=== PATIENT | female | born 1990 | race Caucasian/White ===

== ENCOUNTER 2018-10-08 07:24 | Day surgery (SDC) | payer BC ==
[2018-10-07 16:31] LABS: CHLORIDE,CL 105 mmol/L (98-107); SODIUM,NA 141 mmol/L (136-145)
[~2018-10-08 07:24] MED LIST: Lactated Ringers 1,000 ML IV SCH; Sodium Chloride 0.9% 10 ML SDV IV PRN; Sodium Chloride 0.9% 10 ML Syringe FLUSH PRN; Sodium Chloride 0.9% 2.5 ML Syringe FLUSH PRN
--- NOTE | 2018-10-08 08:28 | PCM.PREANE ---
Preanesthetic Assessment - Anesthesia/Transfusion/Family Hx Anesthesia History: Prior Anesthesia Without Reaction Other Type of Anesthesia Reaction Comment: "grandfather had hard time coming out of anesthesia" Family History of Anesthesia Reaction: No Transfusion History: No Prior Transfusion(s) - Review of Systems General: No Symptoms Pulmonary: No Symptoms Cardiovascular: No Symptoms Gastrointestinal: No Symptoms Neurological: No Symptoms Other: Reports: None - Physical Assessment NPO Status Date: 10/07/18 NPO Status Time: 20:30 O2 Sat by Pulse Oximetry: 100 Respiratory Rate: 15 Vital Signs: Last Vital Signs Temp 98.6 F 10/08/18 08:00 Pulse 66 10/08/18 08:00 Resp 15 10/08/18 08:00 BP 123/68 10/08/18 08:00 Pulse Ox 100 10/08/18 08:00 Height: 5 ft 8 in Weight: 88.451 kg ASA Class: 2 Mental Status: Alert & Oriented x3 Airway Class: Mallampati = 2 Dentition: Reports: Normal Dentition ROM/Head Extension: Full Lungs: Clear to Auscultation, Normal Respiratory Effort Cardiovascular: Regular Rate, Regular Rhythm - Lab Values: Laboratory Last Values WBC 9.50 K/uL (4.0-11.0) 10/07/18 14:30 RBC 4.80 M/uL (4.30-5.90) 10/07/18 14:30 Hgb 13.6 g/dL (12.0-16.0) 10/07/18 14:30 Hct 40.3 % (36.0-46.0) 10/07/18 14:30 MCV 84.0 fL (80.0-98.0) 10/07/18 14:30 MCH 28.3 pg (27.0-32.0) 10/07/18 14:30 MCHC 33.7 g/dL (31.0-37.0) 10/07/18 14:30 RDW Std Deviation 47.7 fl (28.0-62.0) 10/07/18 14:30 RDW Coeff of Teresa 16 % (11.0-15.0) H 10/07/18 14:30 Plt Count 302 K/uL (150-400) 10/07/18 14:30 MPV 11.40 fL (7.40-12.00) 10/07/18 14:30 Nucleated RBC % 0.0 /100WBC 10/07/18 14:30 Nucleated RBCs # 0 K/uL 10/07/18 14:30 Sodium 141 mmol/L (136-145) 10/07/18 14:30 Potassium 4.2 mmol/L (3.5-5.1) 10/07/18 14:30 Chloride 105 mmol/L (98-107) 10/07/18 14:30 Carbon Dioxide 25.6 mmol/L (21.0-32.0) 10/07/18 14:30 BUN 12 mg/dL (7.0-18.0) 10/07/18 14:30 Creatinine 0.8 mg/dL (0.6-1.0) 10/07/18 14:30 Est Cr Clr Drug Dosing 107.50 mL/min 10/07/18 14:30 Estimated GFR (MDRD) > 60.0 ml/min 10/07/18 14:30 Glucose 97 mg/dL (74-106) 10/07/18 14:30 Calcium 8.9 mg/dL (8.5-10.1) 10/07/18 14:30 HCG, Qual NEGATIVE (NEG) 10/07/18 14:30 Blood Type O POSITIVE 10/07/18 14:30 Antibody Screen NEGATIVE 10/07/18 14:30 - Allergies Allergies/Adverse Reactions: Allergies Allergy/AdvReac Type Severity Reaction Status Date / Time No Known Allergies Allergy Verified 10/05/18 09:12 - Blood Blood Available: No - Anesthesia Plan Pre-Op Medication Ordered: None - Acknowledgements Anesthesia Type Planned: General Anesthesia Pt an Appropriate Candidate for the Planned Anesthesia: Yes Alternatives and Risks of Anesthesia Discussed w Pt/Guardian: Yes Pt/Guardian Understands and Agrees with Anesthesia Plan: Yes Additional Comments: PMH: asthma, migraine plan- ga/lma PreAnesthesia Questionnaire HEENT History: Reports: Other (See Below) Other HEENT History: wears glasses, has dental implant Cardiovascular History: Reports: None Respiratory History: Reports: Asthma Gastrointestinal History: Reports: None Genitourinary History: Reports: None Musculoskeletal History: Reports: None Neurological History: Reports: Migraines Psychiatric History: Reports: None Endocrine/Metabolic History: Reports: None Hematologic History: Reports: Anemia Immunologic History: Reports: None Oncologic (Cancer) History: Reports: None Dermatologic History: Reports: Eczema - Past Surgical History Head Surgeries/Procedures: Reports: None HEENT Surgical History: Reports: Adenoidectomy, Oral Surgery, Tonsillectomy Cardiovascular Surgical History: Reports: None Respiratory Surgical History: Reports: None GI Surgical History: Reports: Cholecystectomy Female Surgical History: Reports: None Endocrine Surgical History: Reports: None Neurological Surgical History: Reports: None Musculoskeletal Surgical History: Reports: None Oncologic Surgical History: Reports: None Dermatological Surgical History: Reports: None - SUBSTANCE USE Smoking Status *Q: Never Smoker Recreational Drug Use History: No - HOME MEDS Home Medications: Home Meds Albuterol Sulfate [Proair Hfa] 1 - 2 inhalation INH ASDIRECTED PRN 10/05/18 [ History] - CURRENT (IN HOUSE) MEDS Current Meds: Current Medications Lactated Ringer's (Ringers, Lactated) 1,000 mls @ 500 mls/hr IV BOLUS KALEIGH Last Admin: 10/08/18 08:10 Dose: 500 mls/hr Sodium Chloride (Saline Flush) 10 ml FLUSH ASDIRECTED PRN PRN Reason: Keep Vein Open Sodium Chloride (Saline Flush) 2.5 ml FLUSH ASDIRECTED PRN PRN Reason: Keep Vein Open Sodium Chloride (Normal Saline) 10 ml IV ASDIRECTED PRN PRN Reason: IV Use
[2018-10-08] MEDS ORDERED: Lidocaine 2% 5 ML SDV ONE (08:42)
[2018-10-08] MEDS ORDERED: Ondansetron 4 MG/2 ML SDV ONE (08:42)
[2018-10-08] MEDS ORDERED: Propofol 200 MG/20 ML SDV ONE ×2 (08:42→10:08)
[2018-10-08] MEDS ORDERED: fentaNYL 100 MCG/2 ML SDV ONE ×2 (08:42→09:48)
[2018-10-08] MEDS ORDERED: Midazolam 1 MG/ML 2 ML SDV ONE (08:43)
[2018-10-08] MEDS ORDERED: Lidocaine 1% 20 ML MDV ONE (09:21)
[2018-10-08] MEDS ORDERED: Ketorolac 30 MG/ML SDV IVPUSH ONE (10:02)
[2018-10-08] MEDS ORDERED: Ketorolac 30 MG/ML SDV IVPUSH PRN (10:02)
[2018-10-08] MEDS ORDERED: Morphine 4 MG/ML Syringe IVPUSH PRN (10:02)
[2018-10-08] MEDS ORDERED: Acetaminophen/oxyCODONE 325-5 MG Tab PO PRN ×2 (10:02)
[2018-10-08] MEDS ORDERED: Ondansetron 4 MG/2 ML SDV IVPUSH PRN (10:02)
[2018-10-08] MEDS ORDERED: Promethazine 25 MG/ML SDV IM PRN (10:02)
--- NOTE | 2018-10-08 10:06 | PCM.OPNOTE ---
- General Post-Op/Procedure Note Date of Surgery/Procedure: 10/08/18 Operative Procedure(s): Leep,removal of IUD Post-Op Diagnosis: Same Anesthesia Technique: General LMA Primary Surgeon: Thiago Brown EBL in mLs: 20 Complications: None Condition: Good
--- NOTE | 2018-10-08 10:07 | PCM.DCSUM1 ---
Discharge Summary - Hospital Course Diagnosis: Stroke: No - Discharge Data Discharge Date: 10/08/18 Discharge Disposition: Home, Self-Care 01 Condition: Good - Patient Summary/Data Operative Procedure(s) Performed: Leep,removal of IUD - Patient Instructions Driving: Do Not Drive Showering/Bathing: May Shower Notify Provider of: Fever, Increased Pain, Nausea and/or Vomiting - Discharge Plan Home Medications: Home Meds Albuterol Sulfate [Proair Hfa] 1 - 2 inhalation INH ASDIRECTED PRN 10/05/18 [ History] - Discharge Summary/Plan Comment DC Time >30 min.: Yes - General Info Date of Service: 10/08/18 Functional Status: Reports: Pain Controlled - Review of Systems General: Reports: No Symptoms HEENT: Reports: No Symptoms Pulmonary: Reports: No Symptoms Cardiovascular: Reports: No Symptoms Gastrointestinal: Reports: No Symptoms Genitourinary: Reports: No Symptoms Musculoskeletal: Reports: No Symptoms Skin: Reports: No Symptoms Neurological: Reports: No Symptoms Psychiatric: Reports: No Symptoms - Patient Data Vitals - Most Recent: Last Vital Signs Temp 37.0 C 10/08/18 08:00 Pulse 66 10/08/18 08:00 Resp 15 10/08/18 08:28 BP 123/68 10/08/18 08:00 Pulse Ox 100 10/08/18 08:28 Weight - Most Recent: 88.451 kg Lab Results - Last 24 hrs: Laboratory Results - last 24 hr 10/07/18 10/07/18 10/07/18 Range/Units 14:30 14:30 14:30 WBC 9.50 (4.0-11.0) K/uL RBC 4.80 (4.30-5.90) M/uL Hgb 13.6 (12.0-16.0) g/dL Hct 40.3 (36.0-46.0) % MCV 84.0 (80.0-98.0) fL MCH 28.3 (27.0-32.0) pg MCHC 33.7 (31.0-37.0) g/dL RDW Std Deviation 47.7 (28.0-62.0) fl RDW Coeff of Teresa 16 H (11.0-15.0) % Plt Count 302 (150-400) K/uL MPV 11.40 (7.40-12.00) fL Nucleated RBC % 0.0 /100WBC Nucleated RBCs # 0 K/uL Sodium 141 (136-145) mmol/L Potassium 4.2 (3.5-5.1) mmol/L Chloride 105 (98-107) mmol/L Carbon Dioxide 25.6 (21.0-32.0) mmol/L BUN 12 (7.0-18.0) mg/dL Creatinine 0.8 (0.6-1.0) mg/dL Est Cr Clr Drug Dosing 107.50 mL/min Estimated GFR (MDRD) > 60.0 ml/min Glucose 97 (74-106) mg/dL Calcium 8.9 (8.5-10.1) mg/dL HCG, Qual NEGATIVE (NEG) Blood Type Antibody Screen 10/07/18 Range/Units 14:30 WBC (4.0-11.0) K/uL RBC (4.30-5.90) M/uL Hgb (12.0-16.0) g/dL Hct (36.0-46.0) % MCV (80.0-98.0) fL MCH (27.0-32.0) pg MCHC (31.0-37.0) g/dL RDW Std Deviation (28.0-62.0) fl RDW Coeff of Teresa (11.0-15.0) % Plt Count (150-400) K/uL MPV (7.40-12.00) fL Nucleated RBC % /100WBC Nucleated RBCs # K/uL Sodium (136-145) mmol/L Potassium (3.5-5.1) mmol/L Chloride (98-107) mmol/L Carbon Dioxide (21.0-32.0) mmol/L BUN (7.0-18.0) mg/dL Creatinine (0.6-1.0) mg/dL Est Cr Clr Drug Dosing mL/min Estimated GFR (MDRD) ml/min Glucose (74-106) mg/dL Calcium (8.5-10.1) mg/dL HCG, Qual (NEG) Blood Type O POSITIVE Antibody Screen NEGATIVE Med Orders - Current: Current Medications Lactated Ringer's (Ringers, Lactated) 1,000 mls @ 500 mls/hr IV BOLUS KALEIGH Last Admin: 10/08/18 08:10 Dose: 500 mls/hr Ketorolac Tromethamine (Toradol) 30 mg IVPUSH ONETIME ONE Stop: 10/08/18 10:03 Ketorolac Tromethamine (Toradol) 30 mg IVPUSH Q6H PRN PRN Reason: Pain (severe 7-10) Stop: 10/13/18 10:02 Morphine Sulfate (Morphine) 4 mg IVPUSH Q2H PRN PRN Reason: Pain (severe 7-10) Ondansetron HCl (Zofran) 4 mg IVPUSH Q6H PRN PRN Reason: Nausea/Vomiting Oxycodone/Acetaminophen (Percocet 325-5 Mg) 1 tab PO Q4H PRN PRN Reason: Pain (moderate 4-6) Oxycodone/Acetaminophen (Percocet 325-5 Mg) 2 tab PO Q4H PRN PRN Reason: Pain (moderate 4-6) Promethazine HCl (Phenergan) 25 mg IM Q6H PRN PRN Reason: Nausea/Vomiting Sodium Chloride (Saline Flush) 10 ml FLUSH ASDIRECTED PRN PRN Reason: Keep Vein Open Sodium Chloride (Saline Flush) 2.5 ml FLUSH ASDIRECTED PRN PRN Reason: Keep Vein Open Sodium Chloride (Normal Saline) 10 ml IV ASDIRECTED PRN PRN Reason: IV Use Discontinued Medications Fentanyl (Sublimaze) Confirm Administered Dose 100 mcg .ROUTE .STK-MED ONE Stop: 10/08/18 08:43 Fentanyl (Sublimaze) Confirm Administered Dose 100 mcg .ROUTE .STK-MED ONE Stop: 10/08/18 09:49 Lidocaine (Xylocaine-Mpf 2%) Confirm Administered Dose 5 ml .ROUTE .STK-MED ONE Stop: 10/08/18 08:43 Lidocaine HCl (Xylocaine 1%) Confirm Administered Dose 20 ml .ROUTE .STK-MED ONE Stop: 10/08/18 09:22 Midazolam HCl (Versed 1 Mg/Ml) Confirm Administered Dose 2 mg .ROUTE .STK-MED ONE Stop: 10/08/18 08:44 Ondansetron HCl (Zofran) Confirm Administered Dose 4 mg .ROUTE .STK-MED ONE Stop: 10/08/18 08:43 Propofol (Diprivan 20 Ml) Confirm Administered Dose 200 mg .ROUTE .STK-MED ONE Stop: 10/08/18 08:43 - Exam General: Reports: Alert, Oriented HEENT: Reports: Pupils Equal, Pupils Reactive, EOMI, Mucous Membr. Moist/[place] Neck: Reports: Supple Lungs: Reports: Clear to Auscultation, Normal Respiratory Effort Cardiovascular: Reports: Regular Rate, Regular Rhythm GI/Abdominal Exam: Normal Bowel Sounds, Soft, Non-Tender, No Organomegaly, No Distention, No Abnormal Bruit, No Mass, Pelvis Stable (Female) Exam: Normal External Exam, Normal Speculum Exam, Normal Bimanual Exam Rectal (Female) Exam: Normal Exam, Normal Rectal Tone Back Exam: Reports: Normal Inspection, Full Range of Motion Extremities: Normal Inspection, Normal Range of Motion, Non-Tender, No Pedal Edema, Normal Capillary Refill Skin: Reports: Warm, Dry, Intact Wound/Incisions: Reports: Healing Well Neurological: Reports: No New Focal Deficit Psy/Mental Status: Reports: Alert, Normal Affect, Normal Mood
--- NOTE | 2018-10-08 10:35 | PCM.POSTAN ---
POST ANESTHESIA ASSESSMENT - MENTAL STATUS Mental Status: Alert, Oriented - RESPIRATORY Respiratory Status: Respiratory Rate WNL, Airway Patent, O2 Saturation Stable - CARDIOVASCULAR CV Status: Pulse Rate WNL, Blood Pressure Stable - GASTROINTESTINAL GI Status: No Symptoms - PAIN Pain Score: 0 - POST OP HYDRATION Hydration Status: Adequate & Stable - OBSERVATIONS Free Text/Narrative:: Slight sore throat, but denies any pain or nausea. Stable for discharge to phase II recovery.
--- NOTE | 2018-10-08 11:40 | PCM48HPAN ---
Post Anesthesia Note - EVALUATION WITHIN 48HRS OF ANESTHETIC Vital Signs in Normal Range: Yes Patient Participated in Evaluation: Yes Respiratory Function Stable: Yes Airway Patent: Yes Cardiovascular Function Stable: Yes Hydration Status Stable: Yes Pain Control Satisfactory: Yes Nausea and Vomiting Control Satisfactory: Yes Mental Status Recovered: Yes Resp Rate: 15
--- NOTE | 2018-10-08 16:30 | OR ---
SURGEON: Thiago Brown MD DATE OF PROCEDURE: 10/08/2018 PREOPERATIVE DIAGNOSIS: ASCUS with high-grade persistent abnormal Pap smear. POSTOPERATIVE DIAGNOSIS: ASCUS with high-grade persistent abnormal Pap smear. OPERATION PERFORMED: Removal of the IUD and shallow LEEP conization of the cervix. PRIMARY SURGEON: Thiago Brown MD. DESKTOP SUPPORT ENGINEER: OR terrence. ANESTHESIA: LMA. ESTIMATED BLOOD LOSS: 20 mL. COMPLICATIONS: None. FINDING: Abnormal Pap smear. INDICATION: This patient had persistent abnormal Pap smear. She was admitted for diagnostic and therapeutic LEEP excision of the cervix and she also wanted to have her IUD removed. PROCEDURE IN DETAIL: The patient was brought to the OR, properly identified, and after adequate level of anesthesia, the patient was placed in lithotomy position, prepped and draped in sterile fashion as usual. A short weighted speculum was placed in the vagina and then the cervix was grabbed with 2 Allis clamps at 9 and 3 o'clock on both sides, and Nancy was passed through the cervical os, and then the Marine IUD is removed without any problem. Then, 1% Xylocaine was injected to the body of the cervix and using a loop excision, a small shallow performed without any problem, labeled at 12 o'clock, and sent for histopathology, and then the base of the cone was cauterized with electrocautery, and after removing all the clamps, inspection of the uterus was for 4 to 5 minutes. There were no lesions, no bleeding, no oozing. The procedure was ended. Instrument and sponge count were correct. The patient tolerated the procedure well, went to recovery room in stable general condition. OANH / GUILLE /[id number]
== END 2018-10-08 11:15 | disposition home or self-care (01) ==
LOC: MW.SDS 07:24
PROVIDERS: ATTEND Obstetrics & Gynecology
DX: N87.1 Moderate cervical dysplasia (principal); J45.909 Unspecified asthma, uncomplicated; Z30.432 Encounter for removal of intrauterine contraceptive device
CPT/HCPCS: 36415; 57522; 58301; 80048; 84703; 85027; 86850; 86900; 86901; 88307; J2001; J2250; J2405; J2704; J3010; J7120; 00940